=== PATIENT | female | born 1970 | race Caucasian/White ===

== ENCOUNTER 2018-07-14 22:07 | Emergency (ER) | payer SELFPAY, OTHER, MEDICAID ==
[2018-07-15] MEDS: HYDROCODONE/APAP (5/325) TAB PO (02:08)
[2018-07-15] MEDS: ONDANSETRON (ODT) 4 MG TAB ODT (02:08)
== END 2018-07-15 03:53 | disposition home or self-care (01) ==
LOC: FTE 22:07
DX: S13.4XXA Sprain of ligaments of cervical spine, initial encounter (principal); I10 Essential (primary) hypertension; V49.50XA Passenger injured in collision with unspecified motor vehicles in traffic accident, initial encounter
CPT/HCPCS: 72040; 72072; 99283-25